=== PATIENT | male | born 1950 | race Caucasian/White ===

== ENCOUNTER → 2016-11-19 | Outpatient (CLI) | payer BC ==
--- NOTE | 2016-11-19 12:56 | ECHOS ---
DATE OF SERVICE: 11/19/2016 AGE: 66Y SEX: M HT: 73" WT: 214 lbs. Protocol Shaggy: X Others: Stress Echo Stage: 3 Dur. of Exercise: 7:00 *Heart Rate Blood Pressure *Rest: 86 Rest: 122/72 * *Max. Achieved: 156 Maximum BP: 183/63 85% PMHR: 133 100% PMHR: 156 *METS: 8.3 INDICATIONS: Chest pain. MEDICATIONS: Advair, Zyrtec. Mr. Ott is a 66-year-old gentleman being evaluated for symptoms of chest pain and shortness of breath. Baseline EKG showed sinus rhythm with normal KS and QRS duration. Patient walked on the Shaggy protocol for 7 minutes, achieving a maximum heart rate of 156 with a blood pressure of 183/63. EKGs taken during and after exercise did not reveal any significant changes from the baseline. ECHO DATA: Baseline echo images are suboptimal. The echo study was performed with contrast. Baseline echo images showed normal wall motion and thickening with borderline LV function. Exercise echo images showed augmentation of the wall motion and thickening in all the segments. FINAL IMPRESSION: 1. Negative stress test. 2. Baseline echo shows borderline normal left ventricular function. 3. Normal stress echo.
== END | disposition home or self-care (01) ==
LOC: RADNMMAIN 08:51
PROVIDERS: ATTEND Family Medicine
DX: R07.9 Chest pain, unspecified (principal); R06.02 Shortness of breath
CPT/HCPCS: 93350; 93017; Q9957

== ENCOUNTER 2017-03-04 06:18 | Day surgery (SDC) | payer BC ==
[2017-02-26 09:39] VITALS: BMI 28.2
[~2017-03-04 06:18] MED LIST: DEXAMETHASONE SOD PHOSPHATE 10 MG/ML 1 ML VIAL IV ONE; HEPARIN SODIUM,PORCINE 5,000 UNIT/ML 1 ML VIAL SQ ONE; LIDOCAINE 1% 20 ML VIAL (10MG/ML) FOR IV START INTRADERMA PRN; ONDANSETRON 4 MG/2 ML VIAL IVP ONE; SCOPOLAMINE 1.5MG/72HR PATCH TRANSDERM ONE; ceFAZolin 2 GM in SODIUM CHLORIDE 0.9% 100 ML IVPB ONE
[2017-03-04] MEDS: LACTATED RINGERS 1,000 ML IV SCH ×2 (07:01→07:12)
--- NOTE | 2017-03-04 07:44 | P.GSHP ---
History of Present Illness H&P Date: 03/04/17 Chief Complaint: Left inguinal hernia This is a 66-year-old male referred from Dr. Luther. He presents today for laparoscopic robotic-assisted repair of left inguinal hernia. Past Medical History Past Medical History: Asthma, Musculoskeletal Disorder Additional Past Medical History / Comment(s): RUPTURED DISC, inguinal hernia History of Any Multi-Drug Resistant Organisms: None Reported Past Surgical History: Back Surgery Additional Past Surgical History / Comment(s): COLONOSCOPY,back surgery 05/30/14 Past Anesthesia/Blood Transfusion Reactions: No Reported Reaction Additional Past Anesthesia/Blood Transfusion Reaction / Comment(s): NEVER HAS HAD GENERAL ANESTHESIA Smoking Status: Never smoker - Past Family History Mother Family Medical History: Cancer Brother(s) Family Medical History: CVA/TIA Medications and Allergies Home Medications Medication Instructions Recorded Confirmed Type Cetirizine HCl/Pseudoephedrine 1 each PO DAILY 05/27/14 03/04/17 History [Zyrtec-D Tablet] Fluticasone/Salmeterol [Advair 1 puff INHALATION QAM 05/27/14 03/04/17 History 100-50 Diskus] Allergies Allergy/AdvReac Type Severity Reaction Status Date / Time No Known Allergies Allergy Verified 03/04/17 06:44 Surgical - Exam Vital Signs Temp Pulse Resp BP Pulse Ox 98.1 F 85 16 148/96 96 03/04/17 06:50 03/04/17 06:50 03/04/17 06:50 03/04/17 06:50 03/04/17 06:50 - General well developed, no distress - Eyes PERRL - ENT normal pinna - Neck no masses - Respiratory normal expansion - Cardiovascular Rhythm: regular - Abdomen Abdomen: soft, non tender Hernia: inguinal (Left) Assessment and Plan Plan: Left inguinal hernia. We'll perform laparoscopic robotic-assisted repair.
[2017-03-04] MEDS ORDERED: MIDAZOLAM 2 MG/2 ML VIAL ONE (07:47)
[2017-03-04] MEDS ORDERED: PROPOFOL 10 MG/ML 20 ML VIAL IV ONE (07:47)
[2017-03-04] MEDS ORDERED: GLYCOPYRROLATE 0.2 MG/ML 2 ML VIAL ONE (07:47)
[2017-03-04] MEDS ORDERED: KETOROLAC 30 MG/ML 1 ML VIAL ONE (07:47)
[2017-03-04] MEDS ORDERED: SUCCINYLCHOLINE CHLORIDE 100 MG/5 ML SYR IV ONE (07:47)
[2017-03-04] MEDS ORDERED: fentaNYL (PF) 50 MCG/ML 2 ML AMP ONE (07:47)
[2017-03-04] MEDS ORDERED: NEOSTIGMINE 1 MG/ML 10 ML VIAL ONE (07:47)
[2017-03-04] MEDS ORDERED: ROCURONIUM BROMIDE 10 MG/ML 10 ML VIAL IV ONE (07:47)
[2017-03-04] MEDS ORDERED: LIDOCAINE 1% INJ 10MG/ML (20 ML MDV) ONE (07:47)
[2017-03-04] MEDS ORDERED: LIDOCAINE 2%-EPI 1:100,000 20 ML VIAL SQ ONE (08:18)
[2017-03-04] MEDS ORDERED: BUPIVACAINE (PF) 0.25% 30 ML VIAL SQ ONE (08:19)
--- NOTE | 2017-03-04 08:50 | P.OP ---
Date of Procedure: 03/04/17 Preoperative Diagnosis: Left Inguinal hernia Postoperative Diagnosis: Left inguinal hernia Procedure(s) Performed: Laparoscopic robotic-assisted repair of left inguinal hernia Implants: Anesthesia: ISAA Surgeon: Darvin Soria Estimated Blood Loss (ml): 5 Pathology: none sent Condition: stable Disposition: PACU Indications for Procedure: Operative Findings: Description of Procedure: The patient's placed on the operating table in the supine position. The patient received general anesthesia. The patient's abdomen was prepped and draped in usual sterile fashion. The skin was anesthetized 1% local Xylocaine at the incision sites. Using an 11 blade a skin incision was made at the umbilicus. The fascia was grasped with a Jhonny and then the peritoneal cavity was entered with the Veress needle. Position of the Veress needle was confirmed with a positive drop test. After adequate insufflation a 5 mm trocar was placed into the peritoneal cavity. The Laparoscope was placed the peritoneal cavity. And a robotic 8 mm trocar was placed in the right lateral position and then another 8 mm robotic trochars placed in the left lateral position. The original 5 mm trocar was exchanged for a 12 mm trocar. The patient was placed in reverse Trendelenburg and then the patient was docked to the robot. Next the peritoneum over top of the hernia was incised and then using blunt and sharp dissection and electrocautery the hernia sac was dissected free from the floor of the inguinal canal. The hernia sac was completely reduced into the peritoneal cavity. And then using the Pro invasive cardiovascular technologist mesh the hernia was repaired. The peritoneum was then sutured with 20V lock suture. The patient was then undocked the robot. The needle was withdrawn from the peritoneal cavity. The umbilical trocar site was closed with 0 Ethibond suture. The skin was closed interrupted 3-0 Monocryl suture. Dermabond dressing was applied. Patient was sent to recovery in stable condition.
[2017-03-04 09:15] VITALS: TEMP 98.2
[2017-03-04] MEDS: HYDROmorphone 1 MG/ML 1 ML SYRINGE IVP PRN ×2 (09:19→09:34)
[2017-03-04 09:56] VITALS: RESP 16
[2017-03-04 11:04] VITALS: BP 147/85; PULSE 72
[2017-03-04] MEDS ORDERED: HYDROcodone/APAP 7.5-325MG 1 EACH TAB PO ONE (11:15)
== END 2017-03-04 12:06 | disposition home or self-care (01) ==
LOC: OR 06:18
PROVIDERS: ATTEND Surgery
DX: K40.90 Unilateral inguinal hernia, without obstruction or gangrene, not specified as recurrent (principal); J45.909 Unspecified asthma, uncomplicated; Z79.51 Long term (current) use of inhaled steroids; Z79.899 Other long term (current) drug therapy
CPT/HCPCS: 49650; C1781; J2250; J1644; J1100; J2710; J0690; J2405; J2001; J3010; J1885; J1170; J0330; J2704

== ENCOUNTER 2019-02-25 06:34 | Day surgery (SDC) | payer BC, OTHER ==
[2019-02-24 08:49] VITALS: BMI 28.3
[~2019-02-25 06:34] MED LIST changes: -DEXAMETHASONE SOD PHOSPHATE 10 MG/ML 1 ML VIAL IV ONE; -HEPARIN SODIUM,PORCINE 5,000 UNIT/ML 1 ML VIAL SQ ONE; +LACTATED RINGERS 1,000 ML IV SCH; -LIDOCAINE 1% 20 ML VIAL (10MG/ML) FOR IV START INTRADERMA PRN; -ONDANSETRON 4 MG/2 ML VIAL IVP ONE; -SCOPOLAMINE 1.5MG/72HR PATCH TRANSDERM ONE; -ceFAZolin 2 GM in SODIUM CHLORIDE 0.9% 100 ML IVPB ONE
[2019-02-25] MEDS ORDERED: LACTATED RINGERS 1,000 ML IV ONE (07:14)
[2019-02-25 07:18] VITALS: TEMP 98.6
[2019-02-25] MEDS ORDERED: PROPOFOL 10 MG/ML 20 ML VIAL IV ONE (07:43)
[2019-02-25] MEDS ORDERED: LIDOCAINE 1% INJ 10MG/ML (20 ML MDV) ONE (07:43)
--- NOTE | 2019-02-25 08:11 | P.PCN ---
Date of Procedure: 02/25/19 Description of Procedure: BRIEF HISTORY: Patient is a 68-year-old pleasant male scheduled for an elective colonoscopy as a part of screening for malignant neoplasm of the colon. Patient denies any change in bowel habits, blood per rectum or abdominal pain. Last colonoscopy was approximately 10 years ago and normal. No family history of colon cancer reported. PROCEDURE PERFORMED: Colonoscopy. PREOPERATIVE DIAGNOSIS: Screening for malignant neoplasm of the colon, last colonoscopy 10 years ago. ESTIMATED BLOOD LOSS: Minimal. IV sedation per Anesthesia. PROCEDURE: After informed consent was obtained, the patient, was brought into the endoscopy unit. IV sedation was administered by Anesthesia under continuous monitoring. Digital rectal examination was normal. Initially the Olympus CF-190 flexible video colonoscope was then inserted in the rectum, gradually advanced into the c ecum without any difficulty. Careful examination was performed as the scope was gradually being withdrawn. Ileocecal valve and the appendiceal orifice were visualized and appeared normal. Prep was excellent. Mucosa of the cecum, ascending colon, transverse colon, descending colon, sigmoid colon, and rectum appeared normal. Mild scattered smallmouth diverticula in the sigmoid were noted. Mild internal hemorrhoids. Retroflexion was performed in the rectum and no lesions were seen. The patient tolerated the procedure well. IMPRESSION: Normal-appearing colon from rectum to cecum. Mild sigmoid diverticulosis. Internal hemorrhoids. RECOMMENDATIONS: Findings of this examination were discussed with the patient and his . Okay to resume high-fiber diet. Repeat colonoscopy in 10 years or sooner if signs or symptoms which warrant further evaluation develop.
[2019-02-25 08:16] VITALS: RESP 16
[2019-02-25 08:31] VITALS: BP 124/74; PULSE 66
== END 2019-02-25 09:10 | disposition home or self-care (01) ==
LOC: ORWHC2ENDO 06:34
PROVIDERS: ATTEND Internal Medicine
DX: Z12.11 Encounter for screening for malignant neoplasm of colon (principal); K57.30 Diverticulosis of large intestine without perforation or abscess without bleeding; K64.8 Other hemorrhoids; J45.909 Unspecified asthma, uncomplicated; Z79.899 Other long term (current) drug therapy
CPT/HCPCS: G0121; J2001; J2704

== ENCOUNTER → 2019-03-30 | Outpatient (CLI) | payer BC ==
--- NOTE | 2019-03-30 21:35 | CONS ---
CONSULTATION REASON FOR CONSULTATION: Consultation note for sleep apnea. HISTORY OF PRESENT ILLNESS: 68-year-old male patient, works at [employer] who is about to retire within the next few months. The patient has been noted to snore and quit breathing at night and he has been told that by his who is quite worried about his condition. For that reason, the patient was referred to me. He is feeling fatigued and tired. He reports that his sleep is fragmented. He goes to bed between 9-930 p.m. and he has to get up and around 3:10 am in the morning to go to work. He has to wake up with an alarm. He feels non refreshed. His [place] score is currently at 17. He is able to function well at work. He does not fall asleep while driving. It does not fall asleep while working. However he feels very much sleepy after getting back home. On weekends, he sleeps longer and he may get up sometimes at 8 o'clock in the morning. As mentioned, he snores. No grinding of the teeth. No restlessness in lower extremities. No anxiety. No panic attacks. No palpitation. No heartburn. No chest pain. No claustrophobia. No depression. He has asthma which is well controlled with Advair. He has a history of nasal septal deviation. He has problems breathing through his left nostril and for that reason, he has been a mouth breather especially at nighttime. He wakes up with a dry mouth. PAST MEDICAL HISTORY: Asthma and nasal septal deviation. PAST SURGICAL HISTORY: Includes back surgery and hernia. DRUG ALLERGIES: Not known. ALLERGIES: THE PATIENT IS ALLERGIC TO DUST AND GRASS AND POLLEN AND MOLDS. SOCIAL HISTORY: The patient is a social alcohol drinker. No history of smoking. No history of IV drugs. FAMILY HISTORY: Mother had ovarian cancer. Father had COPD. REVIEW OF SYSTEMS: Fourteen-point review of system was done. Positive findings are mentioned in history of present illness. PHYSICAL EXAMINATION: BP is 134/84, pulse 78, respirations 16, temperature 98.2. Saturation 96% on room air. Height is 6 feet 0 inches, weight is 216 and neck size 17 inches. General appearance: Calm, comfortable in no acute distress. HEAD is atraumatic, normocephalic. NECK: Supple. There is no JVD. No goiter or neck masses. Mallampati class III. LUNGS: Clear to auscultation. HEART: Sounds regular rate and rhythm. Normal S1, S2. No S3. No murmurs. ABDOMEN: Soft, nontender. No organomegaly. EXTREMITIES: No edema. No cyanosis or clubbing. Neurologically, the patient is alert and oriented x3. No focal neurological deficits. PSYCH is negative for anxiety or depression. IMPRESSION: 1. Hypersomnia with an [place] score of 17, high likelihood for obstructive sleep apnea especially with his snoring and witnessed apneas. 2. Chronic fatigue and sleepiness under investigation. 3. Bronchial asthma currently inactive and stable. 4. 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 PLAN: Home sleep study looking for any significant sleep breathing disorder and further recommendations are to follow accordingly. MMODL / IJN: [id number] /
== END | disposition home or self-care (01) ==
LOC: SLEEP 14:46
PROVIDERS: ATTEND Internal Medicine Critical Care Medicine
DX: G47.10 Hypersomnia, unspecified (principal); J45.909 Unspecified asthma, uncomplicated; J34.2 Deviated nasal septum; R53.83 Other fatigue
CPT/HCPCS: 99211

== ENCOUNTER → 2022-04-17 | Outpatient (CLI) | payer MEDICARE ==
--- NOTE | 2022-04-17 11:24 | P.PN ---
Subjective DATE: 04/17/2022 FOLLOW UP VISIT. Patient with obstructive sleep apnea hypopnea syndrome return to sleep center for follow-up visit. Recently patient had sleep study which documented obstructive sleep apnea hypopnea syndrome. Patient was initiated on PAP therapy and today is first visit after treatment was started. Patient was able to use PAP equipment every night for the whole night and he feels much better with the CPAP than before. Previously patient had 34 episodes of nocturia, now it's possibly only one time. The patient does not have significant problems with the mask, PAP pressure and humidification. [place] sleepiness scale is 3. I checked information from PAP unit. PAP unit pressure 9-14, average 10.9 cm H2O. Usage is 90% for more then 4 hours, average 7.5 hours per night. Leak is 80.9 l/m, which is in acceptable range. Apnea Hypopnea Index is 19.7, included 0.4 obstructive, 1.0 centrals, and 15.9 unknown. MEDICATIONS:1. Ecotrin 2. Fluticasone 3. Salmeterol 4. Cetirizine During physical exam: GENERAL: A pleasant patient without any distress. VITAL SIGNS: BP 137/87, HR 68, RR 16, weight 224.0, temperature 97, oxygen saturation at room air 97%. HEENT: PERRLA, EOMI.low position of soft palate . NECK: Supple. No JVD. LUNGS: Clear to percussion and to auscultation. Good air exchange. No wheezing or rhonchi. HEART: S1, S2 regular. ABDOMEN: Soft and nontender.[] EXTREMITIES: No clubbing or cyanosis. MISSILE FACILITIES REPAIRER: Awake, alert, and oriented x3. No focal deficit. Impressions: 1. Obstructive sleep apnea-hypopnea syndrome. Patient demonstrated great compliance with treatment, benefiting from treatment. Significant leak from the mask. Apnea-hypopnea index improved decreased from 63.4 down to 19.7, but still above normal range. 2. Asthma. 3. History of headaches. 4. History of back problems status post back surgery. 5. Status post hernia repair. 6. Restriction of nasal breathing. Patient is using full face mask. Some irritation on the bridge of the nose.. Plan: 1. Continue using PAP equipment every night for the whole night. I change range of the pressure to 9-16 cm of water. 2. To change air filter at least 1-2 times per month. 3. PAP unit should stay lower then position of the head. 4. Advised patient to remove all remaining water from humidifier canister daily and make it dry after each usage. Refill canister with fresh distilled water before each usage. 5. Sleep hygiene with regular time in bed for at least 8 hours. 6. Precautions related to driving. No driving if feel any sleepiness. 7. I will maintain prescription for PAP supplies including mask, tube, filters. Prescription for different full face mask, which will be dreamwhere, which goes below nose. 8. Follow up visit in 4 months or earlier if patient has any problems. 9. Watching weight. Thank you very much for allowing me to participate in the management of your patient. Piotr Monroy MD, PhD, FAASM. Diplomat of [place] [employer] Sleep Medicine, Sleep Medicine Board by [place] [employer] Filament Coil Winder of [facility] [place]
== END ==
LOC: SLEEP 10:17
PROVIDERS: ATTEND Internal Medicine
DX: G47.33 Obstructive sleep apnea (adult) (pediatric) (principal); J45.909 Unspecified asthma, uncomplicated; Z99.89 Dependence on other enabling machines and devices; Z86.69 Personal history of other diseases of the nervous system and sense organs; Z98.890 Other specified postprocedural states
CPT/HCPCS: 99212

== ENCOUNTER → 2023-03-13 | Outpatient (CLI) | payer MEDICARE ==
--- NOTE | 2023-03-13 12:11 | P.PN ---
Subjective DATE: 03/13/2023 FOLLOW UP VISIT. Patient with obstructive sleep apnea hypopnea syndrome return to sleep center for follow-up visit. Information from previous visit have been reviewed. Patient is using PAP equipment every night for the whole night, getting PAP supplies in time. Patient feels discomfort related to pressure in his unit on wake up in the middle of the night. [place] sleepiness scale is borderline 10. I checked information from PAP unit. PAP unit pressure 9-18, average 17.4 cm H2O. Usage is 77% and 73 % for more then 4 hours, average 6.75 hours per night. Leak is 22.3 l/m, which is in acceptable range. Apnea Hypopnea Index is increased to 15.3 and that includes 2.4 central of, 6.8 obstructive, 1.8 unknown and 1.6 RERA index. Ramp at 10 minutes. MEDICATIONS:1. Fluticasone 2. Zyrtec 3. Ecotrin During physical exam: GENERAL: A pleasant patient without any distress. VITAL SIGNS: BP 149/92, HR 73, RR 12 , weight 219.0, temperature 97.4, oxygen saturation at room air 95 % . HEENT: PERRLA, EOMI.low position of soft palate. NECK: Supple. No JVD. LUNGS: Clear to percussion and to auscultation. Good air exchange. No wheezing or rhonchi. HEART: S1, S2 regular. ABDOMEN: Soft and nontender.[] EXTREMITIES: No clubbing or cyanosis. DIGITAL MARKETING EXECUTIVE: Awake, alert, and oriented x3. No focal deficit. Impressions: 1. Obstructive sleep apnea-hypopnea syndrome. Patient demonstrated good compliance with treatment, but has problems related to the pressure. 2. Asthma. 3. History of back problems, status post back surgery. 4. Restriction of nasal breathing, patient has to use fullface mask. 5. ALLERGY. 6. Status post hernia repair. I decreased range of the pressure in CPAP unit to the level 9-15 cm of water. Ramp was switched to automatic regimen. Plan: 1. Continue using PAP equipment every night for the whole night. 2. To change air filter at least 1-2 times per month. 3. PAP unit should stay lower then position of the head. 4. Advised patient to remove all remaining water from humidifier canister daily and make it dry after each usage. Refill canister with fresh distilled water before each usage. 5. Sleep hygiene with regular time in bed for at least 8 hours. 6. Precautions related to driving. No driving if feel any sleepiness. 7. I will maintain prescription for PAP supplies including mask, tube, filters. 8. Follow up visit in 2 months or earlier if patient has any problems. 9. Watching weight. Thank you very much for allowing me to participate in the management of your patient. Piotr Monroy MD, PhD, FAASM. Diplomat of [place] [employer] Sleep Medicine, Sleep Medicine Board by [place] [employer] Medicine Curbing Stonecutter of [facility] [place]
== END ==
LOC: 3 N SLEEP 11:06
PROVIDERS: ATTEND Internal Medicine
DX: G47.33 Obstructive sleep apnea (adult) (pediatric) (principal); J45.909 Unspecified asthma, uncomplicated; Z98.890 Other specified postprocedural states; Z99.89 Dependence on other enabling machines and devices; Z79.51 Long term (current) use of inhaled steroids
CPT/HCPCS: 99212

== ENCOUNTER → 2023-08-06 | Outpatient (CLI) | payer MEDICARE ==
--- NOTE | 2023-08-06 12:08 | P.PN ---
Subjective DATE: 08/06/2023 FOLLOW UP VISIT. Patient with obstructive sleep apnea hypopnea syndrome return to sleep center for follow-up visit. Information from previous visit have been reviewed. Patient is using PAP equipment every night for the whole night, getting PAP supplies in time. Patient still has some leak from the mask. He feels that he wakes up in the middle of the night because pressure is too high for him. [place] sleepiness scale is increased to 12. I checked information from PAP unit. PAP unit pressure 9-15, average 14.7 cm H2O. Usage is 87% and 70 % for more then 4 hours, average 6 hours per night. Leak is significantly increased to 39.9 l/m. Apnea Hypopnea Index is significantly increased to 25.6, which include 11.5 obstructive events, 1.2 central events and 10.8 unknown events, which is normal. MEDICATIONS:1. Fluticasone 2. Zyrtec 3. Ecotrin During physical exam: GENERAL: A pleasant patient without any distress. VITAL SIGNS: BP 149/87, HR 77, RR 16, weight 225.0, temperature 97.9, oxygen saturation at room air 96 % . HEENT: PERRLA, EOMI.low position of soft palate, Mallapati 3 . NECK: Supple. No JVD. LUNGS: Clear to percussion and to auscultation. Good air exchange. No wheezing or rhonchi. HEART: S1, S2 regular. ABDOMEN: Soft and nontender.[] EXTREMITIES: No clubbing or cyanosis. MOTOR GRADER OPERATOR: Awake, alert, and oriented x3. No focal deficit. I reviewed results of previous sleep studies. Home sleep apnea test on 12/11/2021 showed apnea-hypopnea index 63.4 with 121 mixed apneas, 79 central apneas, 223 obstructive apneas. During previous titration with CPAP respiration was normalized to the pressure 11, apnea-hypopnea index came down to 1.4. Impressions: 1. 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 Patient demonstrated great compliance with treatment, benefiting from treatment, but apnea-hypopnea index significantly increased to 25.6.. 2. Asthma. 3. History of back problems, status post back surgery. 4. Restriction of nasal breathing, patient has to use full face mask. 5. ALLERGY. 6. Status post hernia repair. I changed parameters of CPAP unit to constant pressure 11 cm of water. Plan: 1. Continue using PAP equipment every night for the whole night. 2. To change air filter at least 1-2 times per month. 3. PAP unit should stay lower then position of the head. 4. Advised patient to remove all remaining water from humidifier canister daily and make it dry after each usage. Refill canister with fresh distilled water before each usage. 5. Sleep hygiene with regular time in bed for at least 8 hours. 6. Precautions related to driving. No driving if feel any sleepiness. 7. I will maintain prescription for PAP supplies including mask, tube, filters. 8. Follow up visit in 1 months or earlier if patient has any problems. 9. Watching weight. Thank you very much for allowing me to participate in the management of your patient. Piotr Monroy MD, PhD, FAASM. Diplomat of [place] Board of Sleep Medicine, Sleep Medicine Board by [place] Board of Internal Medicine Bundle Helper [facility] [place]
== END ==
LOC: 3 N SLEEP 10:23
PROVIDERS: ATTEND Internal Medicine
DX: G47.33 Obstructive sleep apnea (adult) (pediatric) (principal); J45.909 Unspecified asthma, uncomplicated; Z98.890 Other specified postprocedural states; Z99.89 Dependence on other enabling machines and devices; Z91.09 Other allergy status, other than to drugs and biological substances
CPT/HCPCS: 99212

== ENCOUNTER → 2023-09-04 | Outpatient (CLI) | payer MEDICARE ==
--- NOTE | 2023-09-04 11:36 | P.PN ---
Subjective DATE: 07/04/2024 FOLLOW UP VISIT. Patient with obstructive sleep apnea hypopnea syndrome return to sleep center for follow-up visit. Information from previous visit have been reviewed. During previous visit apnea-hypopnea index was significantly increased to 25.6 and I changed parameters over the machine AutoPap to CPAP 11 cm of water. Patient is using PAP equipment every night for the whole night, getting PAP supplies in time. Patient continued to have awakenings from sleep well using CPAP equipment. [place] sleepiness scale is increased to 16. I checked information from PAP unit. PAP unit pressure 11 cm H2O. Usage is 83% and 79 % for more then 4 hours, average 5.75 hours per night. Leak is borderline 24.9 l/m, which is better than during previous visit when it was 39.9.. Apnea Hypopnea Index is high 31.4. MEDICATIONS:1. Fluticasone 2. Zyrtec 3. Ecotrin During physical exam: GENERAL: A pleasant patient without any distress. VITAL SIGNS: BP 123/76, HR 76, RR 16, weight 222, temperature 97.7, oxygen saturation at room air 95 % . HEENT: PERRLA, EOMI.low position of soft palate, Mallapati 3 . NECK: Supple. No JVD. LUNGS: Clear to percussion and to auscultation. Good air exchange. No wheezing or rhonchi. HEART: S1, S2 regular. ABDOMEN: Soft and nontender.[] EXTREMITIES: No clubbing or cyanosis. CROP GRAIN OR LIVESTOCK FARMER: Awake, alert, and oriented x3. No focal deficit. Impressions: 1. Obstructive sleep apnea-hypopnea syndrome severe, regional apnea-hypopnea index during polysomnogram 63.4.. Patient demonstrated good compliance with treatment. Patient continued to have severe abnormalities of respiration during sleep. I changed parameters of CPAP unit to AutoPap in the range of the pressure 9-18 cm of water. 2. ALLERGY. 3. Asthma. 4. History of back problems, status post back surgery. 5. Restriction of nasal breathing, patient has to use full face mask. 6. Status post hernia repair. Plan: 1. Continue using PAP equipment every night for the whole night. 2. To change air filter at least 1-2 times per month. 3. PAP unit should stay lower then position of the head. 4. Advised patient to remove all remaining water from humidifier canister daily and make it dry after each usage. Refill canister with fresh distilled water before each usage. 5. Sleep hygiene with regular time in bed for at least 8 hours. 6. Precautions related to driving. No driving if feel any sleepiness. 7. I will maintain prescription for PAP supplies including mask, tube, filters. 8. Follow up visit in 1 months or earlier if patient has any problems. 9. Watching weight. Thank you very much for allowing me to participate in the management of your patient. Piotr Monroy MD, PhD, FAASM. Diplomat of [place] Board of Sleep Medicine, Sleep Medicine Board by [place] [employer] Medicine Compliance Lead of [facility] [place]
== END ==
LOC: 3 N SLEEP 10:41
PROVIDERS: ATTEND Internal Medicine
DX: G47.33 Obstructive sleep apnea (adult) (pediatric) (principal); J45.909 Unspecified asthma, uncomplicated; T78.40XA Allergy, unspecified, initial encounter; Z98.890 Other specified postprocedural states; Z99.89 Dependence on other enabling machines and devices; Z87.39 Personal history of other diseases of the musculoskeletal system and connective tissue; Z79.51 Long term (current) use of inhaled steroids
CPT/HCPCS: 99212

== ENCOUNTER → 2023-10-02 | Outpatient (CLI) | payer MEDICARE ==
[2023-10-02 13:38] VITALS: BP 118/74; PULSE 82; RESP 16; TEMP 97.9
--- NOTE | 2023-10-02 14:47 | P.PN ---
Subjective DATE: 10/02/2023 FOLLOW UP VISIT. Patient with obstructive sleep apnea hypopnea syndrome return to sleep center for follow-up visit. Information from previous visit have been reviewed. Patient continued to have some problems with mask, sometimes has significant leak. Presently he has full facemask which goes under the nose and is better than previous mask, but again he has problems. [place] sleepiness scale is significantly increased to 21. I checked information from PAP unit. PAP unit pressure 9-18 average 17.5 cm H2O. Usage is 77% for more then 4 hours, average 5.5 hours per night. Leak is significantly increased to 38.4 l/m. Apnea Hypopnea Index is significantly increased to 27.1. MEDICATIONS:1. Fluticasone 2. Zyrtec 3. Ecotrin During physical exam: GENERAL: A pleasant patient without any distress. VITAL SIGNS: Please see below, BMI 29.2. HEENT: PERRLA, EOMI.low position of soft palate, Mallapati 3 . NECK: Supple. No JVD. LUNGS: Clear to percussion and to auscultation. Good air exchange. No wheezing or rhonchi. HEART: S1, S2 regular. ABDOMEN: Soft and nontender.[] EXTREMITIES: No clubbing or cyanosis. CAMPAIGN CONSULTANT: Awake, alert, and oriented x3. No focal deficit. Impressions: 1. Obstructive sleep apnea-hypopnea syndrome. Patient demonstrated borderline great compliance with treatment. Patient continued to have problems with the CPAP related to mask fitting. Significant leak is present and apnea-hypopnea index significantly increased. 2. Asthma. 3. Allergy. 4. History of back problems. 5. Restriction of nasal breathing. 6. Status post hernia repair. I increased pressure in CPAP unit to the range 9 to 20 cm of water. Plan: 1. Continue using PAP equipment every night for the whole night. We gave patient AirFit F40 fullface mask. Prescription with the goal to get for patient full facemask which has nasal pillows. 2. To change air filter at least 1-2 times per month. 3. PAP unit should stay lower then position of the head. 4. Advised patient to remove all remaining water from humidifier canister daily and make it dry after each usage. Refill canister with fresh distilled water before each usage. 5. Sleep hygiene with regular time in bed for at least 8 hours. 6. Precautions related to driving. No driving if feel any sleepiness. 7. I will maintain prescription for PAP supplies including mask, tube, filters. 8. Follow up visit in 2 months or earlier if patient has any problems. 9. Watching weight. Thank you very much for allowing me to participate in the management of your patient. Piotr Monroy MD, PhD, FAASM. Diplomat of [place] [employer], Sleep Medicine Board by [place] [employer] Private Investigator Surveillance of [facility] [place] Objective - Vital Signs Vital signs: Vital Signs Temp 97.9 F 10/02/23 13:34 Pulse 82 10/02/23 13:34 Resp 16 10/02/23 13:34 BP 118/74 10/02/23 13:34 Pulse Ox 96 10/02/23 13:34 FiO2 Intake & Output 10/01/23 10/02/23 10/02/23 18:59 06:59 18:59 Weight 99.337 kg
== END ==
LOC: 3 N SLEEP 13:12
PROVIDERS: ATTEND Internal Medicine
DX: G47.33 Obstructive sleep apnea (adult) (pediatric) (principal); J45.909 Unspecified asthma, uncomplicated; T78.40XA Allergy, unspecified, initial encounter; Z87.39 Personal history of other diseases of the musculoskeletal system and connective tissue; Z98.890 Other specified postprocedural states; Z99.89 Dependence on other enabling machines and devices; Z79.51 Long term (current) use of inhaled steroids
CPT/HCPCS: 99212

== ENCOUNTER → 2023-10-09 | Outpatient (CLI) | payer MEDICARE ==
[2023-10-09 12:50] LABS: African American GFR (CKD) >90 (>60 ml/min/1.73 sqM); Blood Urea Nitrogen 17 mg/dL (9-20); Non-African American GFR(CKD) 89 (>60 ml/min/1.73 sqM)
--- NOTE | 2023-10-09 14:33 | CT ---
EXAMINATION TYPE: CT pelvis w con DATE OF EXAM: 10/09/2023 COMPARISON: None INDICATION: INGUINAL HERNIA DLP: 975.2 mGycm, Automated exposure control for dose reduction was used. CONTRAST: 100 ml mL of Isovue 300. Study performed with Oral Contrast TECHNIQUE: Axial images were obtained from above the iliac crests to the pubic rami in the axial plan e at 5 mm thick sections. Reconstructed images are reviewed on the computer in the coronal plane. FINDINGS: Limited CT sections were obtained through the lower abdomen. Peripelvic cysts appear to be at the inf erior pole left kidney. Loops of bowel with oral contrast are normal. CT PELVIS: Loops of bowel within the lower abdomen and pelvis are normal. There are loops of bowel which are incompletely distended or lack oral contrast limiting their evaluation. Appendix: Normal as visualized. Urinary bladder: Normal. Genitourinary structures: Prostate is somewhat prominent Osseous structures: No suspicious lytic or sclerotic lesions. IMPRESSION: 1. No suspicious changes to suggest inguinal hernia.
== END | disposition home or self-care (01) ==
LOC: RADCTMAIN 11:51
PROVIDERS: ATTEND Surgery
DX: K40.90 Unilateral inguinal hernia, without obstruction or gangrene, not specified as recurrent (principal)
CPT/HCPCS: 82565; 84520; 72193; 36415; Q9967

== ENCOUNTER → 2024-03-03 | Outpatient (CLI) | payer MEDICARE ==
[2024-03-03 14:31] VITALS: BP 122/78; PULSE 74; RESP 16; TEMP 97.8
--- NOTE | 2024-03-03 15:41 | P.PROGSL ---
Subjective DATE: 03/03/2024 FOLLOW UP VISIT. Patient with obstructive sleep apnea hypopnea syndrome return to sleep center for follow-up visit. Information from previous visit have been reviewed. Patient is using PAP equipment every night for the whole night, getting PAP supplies in time. The patient does not have significant problems with the mask, PAP unit and humidification. [place] sleepiness scale is increased to 12. I checked information from PAP unit. PAP unit pressure 9-20, average 15.8 cm H2O. Usage is 90% for more then 4 hours, average 6 hours per night. Leak is increased to 37.4 l/m, which is in acceptable range. Apnea Hypopnea Index is increased to 11.1, which showed significant improvements comparing with apnea hypopnea index during previous visit, when it was 27.1. MEDICATIONS have been reviewed, please see below. During physical exam: GENERAL: A pleasant patient without any distress. VITAL SIGNS: Please see below, weight is 216 lbs. HEENT: PERRLA, EOMI.low position of soft palate, Mallapati 3. NECK: Supple. No JVD. LUNGS: Clear to percussion and to auscultation. Good air exchange. No wheezing or rhonchi. HEART: S1, S2 regular. ABDOMEN: Soft and nontender.[] EXTREMITIES: No clubbing or cyanosis. LEAD MEDICAL TECHNOLOGIST: Awake, alert, and oriented x3. No focal deficit. Impressions: 1. Obstructive sleep apnea-hypopnea syndrome. Patient demonstrated great compliance with treatment, benefiting from treatment. Apnea-hypopnea index improved, but still above perfect range and include 3.2 central events per hour 2. I reviewed results of home sleep apnea test 2 years ago, it was documented 223 obstructive apneas, 79 central apneas and 129 mixed apneas and 76 hypopneas, significant amount of central events documented. 3. Asthma. 4. Allergy. 5. History of back problems. 6. Restriction of nasal breathing. 7. Status post hernia repair. Plan: 1. Continue using PAP equipment every night for the whole night. We gave patient mask with correct size of headgear with the goal to prevent a leak from the mask. 2. Sleep hygiene with regular time in bed for at least 7.5-8 hours 3. PAP unit should stay lower then position of the head. 4. Advised patient to remove all remaining water from humidifier canister daily and make it dry after each usage. Refill canister with fresh distilled water before each usage. 5. Watching weight. 6. Precautions related to driving. No driving if feel any sleepiness. 7. I will maintain prescription for PAP supplies including mask, tube, filters. 8. Follow up visit in 3 months or earlier if patient has any problems. Thank you very much for allowing me to participate in the management of your patient. Piotr Monroy MD, PhD, FAASM. Diplomat of [place] [employer], Sleep Medicine Board by [place] [employer] Hoop Driving Machine Operator of [facility] [place] Objective - Vital Signs Vital Signs: Vital Signs Temp 97.8 F 03/03/24 14:29 Pulse 74 03/03/24 14:29 Resp 16 03/03/24 14:29 BP 122/78 03/03/24 14:29 Pulse Ox 97 03/03/24 14:29 FiO2 Intake & Output 03/02/24 03/03/24 03/03/24 18:59 06:59 18:59 Weight 97.976 kg Home Medications: Home Medications Medication Instructions Recorded Confirmed Type Cetirizine HCl [Zyrtec] 10 mg PO DAILY 02/24/19 03/03/24 History Fluticasone Propion/Salmeterol 1 inhalation PO DAILY 02/24/19 03/03/24 History [Kristiela 100-50 Inhub]
== END ==
LOC: 3 N SLEEP 14:17
PROVIDERS: ATTEND Internal Medicine
CPT/HCPCS: 99212

== ENCOUNTER → 2024-05-27 | Outpatient (CLI) | payer MEDICARE ==
[2024-05-27 11:18] VITALS: BP 133/82; PULSE 70; RESP 16; TEMP 97.6
--- NOTE | 2024-05-27 12:08 | P.PROGSL ---
Subjective DATE: 05/27/2024 FOLLOW UP VISIT. Patient with obstructive sleep apnea hypopnea syndrome return to sleep center for follow-up visit. Information from previous visit have been reviewed. Patient is using PAP equipment every night for the whole night, getting PAP supplies in time. The patient does not have significant problems with the mask, PAP unit and humidification. [place] sleepiness scale is increased to 15. I checked information from PAP unit. PAP unit pressure 9-20 cm H2O. Usage is 80% for more then 4 hours, average 5.9 hours per night. Leak is 0 l/m during the last night, during the year sometimes increased up to 37 L/min. Apnea Hypopnea Index is 6.2 during last night, which is borderline. MEDICATIONS have been reviewed, please see below. During physical exam: GENERAL: A pleasant patient without any distress. VITAL SIGNS: Please see below, weight is 214 lbs. HEENT: PERRLA, EOMI.low position of soft palate, Mallapati 3. NECK: Supple. No JVD. LUNGS: Clear to percussion and to auscultation. Good air exchange. No wheezing or rhonchi. HEART: S1, S2 regular. ABDOMEN: Soft and nontender.[] EXTREMITIES: No clubbing or cyanosis. MACHINE OPERATOR FARMWORKER: Awake, alert, and oriented x3. No focal deficit. Impressions: 1. Obstructive sleep apnea-hypopnea syndrome in severe range. Patient demonstrated good compliance with treatment, benefiting from treatment. 2. Asthma. 3. Allergy. 4. History of back problems. 5. Status post hernia repair. 6. Restriction of nasal breathing, patient has to use full facemask. Plan: 1. Continue using PAP equipment every night for the whole night. 2. Sleep hygiene with regular time in bed for at least 7.5-8 hours 3. PAP unit should stay lower then position of the head. 4. Advised patient to remove all remaining water from humidifier canister daily and make it dry after each usage. Refill canister with fresh distilled water before each usage. 5. Watching and losing weight. 6. Precautions related to driving. No driving if feel any sleepiness. 7. I will maintain prescription for PAP supplies including mask, tube, filters. 8. Follow up visit in 8 months or earlier if patient has any problems. Thank you very much for allowing me to participate in the management of your patient. Piotr Monroy MD, PhD, FAASM. Diplomat of [place] [employer], Sleep Medicine Board by [employer] [employer] Lifestyle Consultant of [facility] [place] Objective - Vital Signs Vital Signs: Vital Signs Temp 97.6 F 05/27/24 11:18 Pulse 70 05/27/24 11:18 Resp 16 05/27/24 11:18 BP 133/82 05/27/24 11:18 Pulse Ox 97 05/27/24 11:18 FiO2 Intake & Output 05/26/24 05/27/24 05/27/24 18:59 06:59 18:59 Weight 97.069 kg Home Medications: Home Medications Medication Instructions Recorded Confirmed Type Cetirizine HCl [Zyrtec] 10 mg PO DAILY 02/24/19 05/27/24 History Fluticasone Propion/Salmeterol 1 inhalation PO DAILY 02/24/19 05/27/24 History [Wixela 100-50 Inhub]
== END ==
LOC: 3 N SLEEP 10:53
PROVIDERS: ATTEND Internal Medicine
DX: G47.33 Obstructive sleep apnea (adult) (pediatric) (principal); J45.909 Unspecified asthma, uncomplicated; T78.40XA Allergy, unspecified, initial encounter; Z87.39 Personal history of other diseases of the musculoskeletal system and connective tissue; Z98.890 Other specified postprocedural states; Z99.89 Dependence on other enabling machines and devices; Z79.51 Long term (current) use of inhaled steroids
CPT/HCPCS: 99212

== ENCOUNTER → 2024-07-27 | Outpatient (CLI) | payer MEDICARE ==
[2024-07-27 14:39] LABS: African American GFR (CKD) >90 (>60 ml/min/1.73 sqM); Blood Urea Nitrogen 17 mg/dL (9-20); Non-African American GFR(CKD) 87 (>60 ml/min/1.73 sqM)
--- NOTE | 2024-07-27 17:35 | CT ---
EXAMINATION TYPE: CT soft tissue neck w con DATE OF EXAM: 07/27/2024 3:03 PM COMPARISON: None. 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 Reconstructed images in the coronal plane and sagitt al plane are reviewed. Contrast used:100 mL of Isovue 300 with IV Contrast, (none if empty) Oral contrast used: (none if empty) CT DLP: 505 mGycm, Automated exposure control for dose reduction was used. FINDINGS: Limited CT sections are obtained the lung apices. The lung apices appear clear. CT neck: The torus tubarius and fossa of Rosenmuller are normal. Junior Technical Writer spaces are normal. Para nasal sinuses and mastoid air cells are clear. Parotid glands appear normal and symmetrical. Submandibular glands, are normal. Parapharyngeal spac es are normal. No suspicious adenopathy is evident. There is a 0.8 cm hypodensity within the anterior right tonsillar column, series 3 image 33. Correlat e for developing abscess. Close follow-up recommended. The hypopharynx appears within normal limits. Vocal cord level appear symmetrical. Thyroid as visualized is normal. Osseous structures are normal. Epiglottis appears normal. Prevertebral space is normal. IMPRESSION: 1. There is a 0.8 cm hypodensity within the anterior right tonsillar pillar could be developing absce ss. Clinical correlation recommended. Close follow-up is recommended. A Red level critical message alert has been initiated for Mason Rojas MD via the Subtextual Critical Results System on 07/27/2024 5:33 PM. This message alert has been sent to Mason Rojas MD via the preferences provided by the clinician for the receipt of Radiology Critical Findings. Message ID [id number]. [facility], , 07/27/2024 5:33 PM
== END | disposition home or self-care (01) ==
LOC: RADCTMAIN 13:11
PROVIDERS: ATTEND Otolaryngology
DX: D10.4 Benign neoplasm of tonsil (principal)
CPT/HCPCS: 82565; 84520; 70491; 36415; Q9967

== ENCOUNTER → 2024-08-26 | Outpatient (CLI) | payer MEDICARE ==
--- NOTE | 2024-08-28 23:16 | PE ---
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 Images are reviewed on the computer in the coronal, axial, and sagittal planes. Reconstructed rotating images are created on independent workstation an d reviewed on the computer. A non-contrast CT is performed in conjunction with the PET scan. Glucos e level 100 mg/dL CT DLP: 1902.17 mGycm, Automated exposure control for dose reduction was used. COMPARISON: CT 07/27/2024, 10/09/2023, PET/CT None, MRI: None FINDINGS: Mediastinal SUV mean is 2.1. Hepatic parenchyma SUV mean is 2.7. SKULL BASE AND NECK: There is a cavitary thick-walled enhancing lesion within the right palatine tonsillar region. This de monstrates a maximum SUV of 24.1. This abuts the right posterior tongue base and measures grossly 3.6 x 2.1 cm. CHEST, MEDIASTINUM, AND HILAR REGION: No suspicious radiotracer activity. ABDOMEN AND PELVIS: No suspicious radiotracer activity. MUSCULOSKELETAL STRUCTURES: No suspicious radiotracer activity. OTHER CT: Bilateral aphakia. Mild mucosal thickening of the inferior left maxillary sinus. Bilateral carotid bulb calcifications. Subcentimeter hypodense left thyroid lobe nodule. Mild atherosclerotic c alcification of aorta and its branches. Bilateral gynecomastia. Multilevel degenerative disc disease of the spine. IMPRESSION: FDG avid cavitary right palatine tonsil lesion consistent with reported tonsillar cancer. No other monzon spicious radiotracer activity to suggest metastasis. [facility], , 08/28/2024 11:14 PM
== END | disposition home or self-care (01) ==
LOC: RADPETMAIN 06:26
PROVIDERS: ATTEND Otolaryngology
DX: C09.9 Malignant neoplasm of tonsil, unspecified (principal)
CPT/HCPCS: 78815; A9552

== ENCOUNTER 2024-11-23 10:17 | Day surgery (SDC) | payer MEDICARE ==
[2024-11-23] MEDS: IV FLUID CONTINUATION 1,000 ML IV ONE (12:21)
[2024-11-23] MEDS ORDERED: PROPOFOL 10 MG/ML 20 ML VIAL IV ONE (13:02)
[2024-11-23] MEDS ORDERED: LIDOCAINE 1% INJ 10MG/ML (20 ML MDV) ONE (13:02)
--- NOTE | 2024-11-23 13:10 | P.GSHP ---
History of Present Illness H&P Date: 11/23/24 Chief Complaint: Tonsillar cancer 74-year-old male here for upper endoscopy with PEG tube placement. Patient with recent diagnosed with tonsillar cancer. Patient is going through chemotherapy for that. Has had progressive dysphagia to the point that now he is having difficulty with solids and liquids. No abdominal pain. Has had weight loss. BMI 23. Past Medical History Past Medical History: Asthma, Cancer, Hearing Disorder / Deafness, Sleep Apnea/CPAP/BIPAP Additional Past Medical History / Comment(s): 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 Has CPAP-unable to currently use due to difficulty with correct positioning r/t cancer. History of Any Multi-Drug Resistant Organisms: None Reported Past Surgical History: Back Surgery, Hernia Repair, Orthopedic Surgery Additional Past Surgical History / Comment(s): COLONOSCOPY,back surgery , Surgery for ruptured disc. Past Anesthesia/Blood Transfusion Reactions: No Reported Reaction Additional Past Anesthesia/Blood Transfusion Reaction / Comment(s): NEVER HAS HAD GENERAL ANESTHESIA Smoking Status: Never smoker - Past Family History Mother Family Medical History: Cancer Brother(s) Family Medical History: CVA/TIA Father Family Medical History: COPD Medications and Allergies Home Medications Medication Instructions Recorded Confirmed Type Cetirizine HCl [Zyrtec] 10 mg PO QAM 02/24/19 11/23/24 History Fluticasone Propion/Salmeterol 1 inhalation PO DAILY 02/24/19 11/23/24 History [Wixela 100-50 Inhub] Fluconazole [Diflucan] 100 mg PO QAM 11/22/24 11/23/24 History Hydrocodone/Acetaminophen 5 - 325 mg PO DIRECTED PRN 11/22/24 11/23/24 History [Hydrocodone/Acetaminophen 7.5-325] Lidocaine Viscous [Xylocaine 1 dose PO TID PRN 11/22/24 11/23/24 History Viscous 2%] Pilocarpine [Salagen] 5 mg PO TID PRN 11/22/24 11/23/24 History Allergies Allergy/AdvReac Type Severity Reaction Status Date / Time No Known Allergies Allergy Verified 11/23/24 11:49 Surgical - Exam Vital Signs Temp Pulse Resp BP Pulse Ox 96.9 F L 91 16 153/92 100 05/20/25 11:58 11/23/24 11:58 11/23/24 11:58 11/23/24 11:58 11/23/24 11:58 Physical exam: General: Well-developed, well-nourished HEENT: Normocephalic, sclerae nonicteric, radiation skin changes across the lower neck Abdomen: Nontender, nondistended Extremities: No edema Neuro: Alert and oriented Assessment and Plan (1) Tonsillar cancer Narrative/Plan: Will proceed with upper endoscopy with PEG tube placement at this time. Risks of bleeding, infection, catheter misplacement, bowel injury discussed. He understands and wishes to proceed. Current Visit: Yes Status: Acute Code(s): C09.9 - MALIGNANT NEOPLASM OF TONSIL, UNSPECIFIED SNOMED Code(s): 409957500
--- NOTE | 2024-11-23 13:23 | P.PCN ---
Date of Procedure: 11/23/24 Procedure(s) Performed: PREOPERATIVE DIAGNOSIS: Malnutrition, dysphagia POSTOPERATIVE DIAGNOSIS: Same PROCEDURE: EGD with PEG tube placement SURGEON: Tanika EBL: Minimal ANESTHESIA: Sedation COMPLICATIONS: None OPERATIVE PROCEDURE: The patient was placed in the supine position on the endoscopy table. The patient was sedated per anesthesia that time. The Olympus gastroscope was inserted into the oropharynx and passed under direct visualization to the region of the duodenum. No obstruction was seen. The pylorus was widely patent. The stomach was carefully inspected. The stomach was fully insufflated with air. The abdominal wall was inspected. The light was seen shining through the abdominal wall in the left upper quadrant. This site was chosen for PEG tube placement. The area was prepped in the usual sterile fashion. This area was then localized with lidocaine. No air was evident when aspirating while advancing the localizing needle into the stomach until the stomach was reached. A small vertical incision was made using the scalpel. The Seldinger needle was advanced into the lumen of the stomach the wire was advanced. The wire was grasped with an endoscopic snare. The wire was pulled through the oropharynx. The catheter was then threaded over the guidewire and the guidewire and catheter were pulled anteriorly until the hub of the PEG tube catheter was seated against the anterior wall the stomach. The circular bolster was applied and tightened down. The endoscope was then readvanced into the stomach. There was no evidence of any bleeding and there was appropriate tightness on the bolster. The catheter was cut appropriately. The dual port feeding adapter was applied. DISPOSITION: Stable to recovery room
[2024-11-23] MEDS ORDERED: NALOXONE 0.4 MG/ML 1 ML VIAL IV PRN (14:08)
[2024-11-23] MEDS ORDERED: HYDROmorphone 1 MG/ML 1 ML SYRINGE IVP PRN (14:08)
[2024-11-23] MEDS: LACTATED RINGERS 1,000 ML IV ONE (15:00)
[2024-11-23] MEDS ORDERED: PILOCARPINE 5 MG TAB PO PRN (16:04)
--- NOTE | 2024-11-23 16:34 | P.CONS ---
History of Present Illness - Reason for Consult Consult date: 11/23/24 - Chief Complaint Medical management - History of Present Illness 74-year-old man with a medical history of asthma, tonsillar cancer who presented for elective PEG tube placement. Medicine was consulted for medical management. Patient has a history of tonsillar cancer for which he is on chemotherapy and required PEG tube for enteral nutrition, is postop day 0 from this procedure and is doing well without complaints of pain in the belly. He does however complain of pain in the mouth for which she has viscous lidocaine. His asthma is otherwise controlled with Advair. He denies any nausea, vomiting, chest pain, palpitations. Patient is hemodynamically stable. No lab work or imaging to review. All Systems reviewed and pertinent positives and negatives noted in HPI, all other symptoms are negative Gen: In NAD, non-toxic HEENT: normocephalic, atraumatic, hearing acuity is intant, mucous membranes moist CVS: perfusing all extremities well, no pitting edema, Respiratory: symmetric chest expansion, no accessory muscle use, GI: soft, NTTP, ND, : no suprapubic tenderness, no CVA tenderness MSK/Derm: no rashes, cyanosis Neuro: CN II-XII intact, no motor weakness, Psych: cooperative, euthymic mood, judgment and insight is intact Labs and imaging as above Assessment/plan: Asthma without exacerbation - Continue Advair Tonsillar cancer PEG tube placement, postop day 0 - Resume viscous lidocaine as needed - Resume PPI - Continue TPN until tolerating enteral feeding at goal Patient is full code Past Medical History Past Medical History: Asthma, Cancer, Hearing Disorder / Deafness, Sleep Apnea/CPAP/BIPAP Additional Past Medical History / Comment(s): 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 Has CPAP-unable to currently use due to difficulty with correct positioning r/t cancer. History of Any Multi-Drug Resistant Organisms: None Reported Past Surgical History: Back Surgery, Hernia Repair, Orthopedic Surgery Additional Past Surgical History / Comment(s): COLONOSCOPY,back surgery 05/30/14, Surgery for ruptured disc. Past Anesthesia/Blood Transfusion Reactions: No Reported Reaction Additional Past Anesthesia/Blood Transfusion Reaction / Comm: NEVER HAS HAD GENERAL ANESTHESIA Smoking Status: Never smoker - Past Family History Mother Family Medical History: Cancer Brother(s) Family Medical History: CVA/TIA Father Family Medical History: COPD Medications and Allergies Home Medications Medication Instructions Recorded Confirmed Type Cetirizine HCl [Zyrtec] 10 mg PO QAM 02/24/19 11/23/24 History Fluticasone Propion/Salmeterol 1 inhalation PO DAILY 02/24/19 11/23/24 History [Wixela 100-50 Inhub] Fluconazole [Diflucan] 100 mg PO QAM 11/22/24 11/23/24 History Hydrocodone/Acetaminophen 5 - 325 mg PO DIRECTED PRN 11/22/24 11/23/24 History [Hydrocodone/Acetaminophen 7.5-325] Lidocaine Viscous [Xylocaine 1 dose PO TID PRN 11/22/24 11/23/24 History Viscous 2%] Pilocarpine [Salagen] 5 mg PO TID PRN 11/22/24 11/23/24 History Allergies Allergy/AdvReac Type Severity Reaction Status Date / Time No Known Allergies Allergy Verified 11/23/24 11:49 Physical Exam Osteopathic Statement: *. No significant issues noted on an osteopathic structural exam other than those noted in the History and Physical/Consult. Vitals: Vital Signs Temp Pulse Resp BP Pulse Ox 11/23/24 15:32 99.0 F 80 18 131/87 100 11/23/24 14:30 87 18 149/88 94 L 11/23/24 14:00 87 16 143/86 94 L 11/23/24 13:48 80 16 113/84 99 11/23/24 13:30 75 16 121/76 98 11/23/24 11:58 96.9 F L 91 16 153/92 100 Intake and Output 11/23/24 11/23/24 11/23/24 06:59 14:59 22:59 Intake Total 850 Balance 850 Intake: IV 850 Other: Weight 76.9 kg
[2024-11-23] MEDS: D5-0.45% NACL WITH KCL 20MEQ/L 1,000 ML IV SCH (17:23)
[2024-11-23] MEDS: LIDOCAINE VISCOUS 2% 15 ML CUP PO PRN (19:44)
[2024-11-23] MEDS: HYDROcodone/APAP 5-325MG 1 EACH TAB PO PRN (21:15)
[2024-11-24 07:39] VITALS: RESP 18
[2024-11-24 08:24] LABS: HCT 33.3 % (39.6-50.0); HGB 11.2 g/dL (13.0-17.0); MCH 31.4 pg (27.0-32.0); MCHC 33.6 g/dL (32.0-37.0); MCV 93.3 FL (80.0-97.0); Mean Platelet Volume 9.1 FL (9.5-12.2); NRBC Per 100 WBC 0 X 10*3/uL (0.00-0.01); Platelet Count 163 X 10*3/uL (140-440); RBC 3.57 X 10*6/uL (4.40-5.60); RDW 14.1 % (11.5-14.5); WBC 1.56 X 10*3/uL (4.50-10.00)
[2024-11-24 08:28] VITALS: BMI 23.0
[2024-11-24] MEDS: SYMBICORT 80-4.5 MCG INHALER INHALATION SCH (08:30)
[2024-11-24 08:39] LABS: BUN/Creat Ratio 31.43 Ratio (12.00-20.00); Calcium 8.5 mg/dL (8.7-10.3); Carbon Dioxide 25.9 mmol/L (21.6-31.8); Chloride 102 mmol/L (96-109); Glucose 125 mg/dL (70-110); Magnesium 1.7 mg/dL (1.5-2.4); Potassium 3.7 mmol/L (3.5-5.5); Sodium 137 mmol/L (135-145)
[2024-11-24] MEDS: LORATADINE 10 MG TAB PO SCH (09:50)
[2024-11-24] MEDS: PANTOPRAZOLE 40 MG/10 ML VIAL IV SCH (09:50)
[2024-11-24 12:07] LABS: Basophils # (A) 0.01 X 10*3/uL (0.00-0.10); Basophils % (A) 0.6 %; Eosinophils # (A) 0 X 10*3/uL (0.04-0.35); Eosinophils % (A) 0 %; Lymphocytes # (A) 0.18 X 10*3/uL (0.90-5.00); Lymphocytes % (A) 11.5 %; Monocytes % (A) 32.1 %; Neutrophils # (A) 0.86 X 10*3/uL (1.80-7.70); Neutrophils % (A) 55.2 %; RBC Morphology Normal (Normal)
--- NOTE | 2024-11-24 12:28 | P.DS ---
Providers Expected date of discharge: 11/24/24 Attending physician: Paresh Sagastume Consults: 11/23/24 14:14 Consult Physician Routine Consulting Provider: Shirley Chen Consult Reason/Comments: med mgmt Do you want consulting provider notified?: Yes [facility] [place] [facility] Course: Discharge diagnosis 1. Tonsillar cancer 2. Dysphagia 3. Severe protein calorie malnutrition Hospital course This is a 74-year-old male with history of tonsillar cancer with dysphagia and protein calorie malnutrition. He is status post PEG tube placement. His pain is controlled. He is starting tube feeds today. Vitals are stable. He is stable for discharge. PEG tube site clean dry and intact. Please refer to chart for any further details. Physician Sports Betting Manager note has been reviewed by physician. Signing provider agrees with the documented findings, assessment, and plan of care. Patient Condition at Discharge: Stable Plan - Discharge Summary Discharge Rx Participant: No New Discharge Prescriptions: Continue Fluticasone Propion/Salmeterol [Wixela 100-50 Inhub] 1 inhalation PO DAILY Cetirizine HCl [Zyrtec] 10 mg PO QAM Fluconazole [Diflucan] 100 mg PO QAM Lidocaine Viscous [Xylocaine Viscous 2%] 1 dose PO TID PRN PRN Reason: oral pain/swish/spit Hydrocodone/Acetaminophen [Hydrocodone/Acetaminophen 7.5-325] 5 - 325 mg PO DIRECTED PRN PRN Reason: Pain Pilocarpine [Salagen] 5 mg PO TID PRN PRN Reason: Dry Mouth Discharge Medication List Cetirizine HCl [Zyrtec] 10 mg PO QAM 02/24/19 [History] Fluticasone Propion/Salmeterol [Wixela 100-50 Inhub] 1 inhalation PO DAILY 02/24/19 [History] Fluconazole [Diflucan] 100 mg PO QAM 11/22/24 [History] Hydrocodone/Acetaminophen [Hydrocodone/Acetaminophen 7.5-325] 5 - 325 mg PO DIRECTED PRN 11/22/24 [History] Lidocaine Viscous [Xylocaine Viscous 2%] 1 dose PO TID PRN 11/22/24 [History] Pilocarpine [Salagen] 5 mg PO TID PRN 11/22/24 [History] Follow up Appointment(s)/Referral(s): [facility], [NON-STAFF] - 1-2 Days ([facility] will call you to schedule your in home nursing visits to begin teaching on tube feeding administration. Please call them if you have any questions. ) [facility], [REFERRING] - 1-2 Days ([facility] will deliver the tube feeding formula and supplies to your home after discharge. Please call them if you have questions. ) Paresh Sagastume MD [Medical Doctor] - 1 Week Discharge Disposition: HOME WITH HOME HEALTH SERVICES
[2024-11-24 12:33] LABS: ALT 31 U/L (4-49); AST 24 U/L (17-59); African American GFR (CKD) >90 (>60 ml/min/1.73 sqM); Albumin 3.1 g/dL (3.5-5.0); Albumin/Globulin Ratio 1.4; Alkaline Phosphatase 37 U/L (38-126); Anion Gap 9 mmol/L; Blood Urea Nitrogen 20 mg/dL (9-20); Calcium 8.8 mg/dL (8.4-10.2); Carbon Dioxide 26 mmol/L (22-30); Chloride 99 mmol/L (98-107); Globulin 2.2 g/dL; Glucose 131 mg/dL (74-99); Magnesium 1.6 mg/dL (1.6-2.3); Non-African American GFR(CKD) >90 (>60 ml/min/1.73 sqM); Phosphorus 2.5 mg/dL (2.5-4.5); Potassium 3.8 mmol/L (3.5-5.1); Sodium 134 mmol/L (137-145); Total Bilirubin 0.8 mg/dL (0.2-1.3); Total Protein 5.3 g/dL (6.3-8.2)
[2024-11-24 12:37] VITALS: BP 123/72; PULSE 65; TEMP 99.1
--- NOTE | 2024-11-24 14:41 | P.PN ---
Subjective Progress Note Date: 11/24/24 Subjective: Patient seen and examined at bedside. No acute events overnight. Pertinent positives and negatives as discussed above, a complete review of systems was performed and all other systems are negative. Vitals Signs Reviewed. General: Nontoxic, no distress, appears at stated age Derm: Warm, dry, PEG tube site clean, dry, intact Head: Atraumatic, normocephalic, symmetric Eyes: EOMI, no lid lag, anicteric sclera Mouth: No lip lesion, mucus membranes moist Cardiovascular: S1S2 reg, no murmur Lungs: CTA bilateral, no rhonchi, no rales, no accessory muscle use Abdominal: Soft, nontender to palpation, no guarding, no appreciable organomegaly Ext: No gross muscle atrophy, no edema, no contractures Neuro: CN II-XI grossly intact, no focal neuro deficits Psych: Alert, oriented, appropriate affect Data Reviewed Today: Pertinent Labs: WBC 1.56, hemoglobin 11.2, platelet 163, sodium 134, creatinine 0.7, glucose 131 Imaging: No new imaging Assessment and Plan: Asthma without exacerbation - Continue Advair Tonsillar cancer Status post PEG tube placement Bicytopenia - Surgery note reviewed, patient okay to be discharged - Likely secondary to above Patient is medically optimized for discharge Thank you for allowing us to participate in the care of this pleasant patient. Do not hesitate to contact us with questions. Someone can be reached from the [facility] hospitalist group all hours of the day at [phone] or via [email or web address]. Objective - Vital Signs Vital signs: Vital Signs Temp 99.1 F 11/24/24 12:07 Pulse 65 11/24/24 12:07 Resp 18 11/24/24 12:07 BP 123/72 11/24/24 12:07 Pulse Ox 99 11/24/24 12:07 FiO2 Intake & Output 11/23/24 11/24/24 11/24/24 18:59 06:59 18:59 Intake Total 850 1200 Balance 850 1200 Weight 76.9 kg 76.9 kg Intake: IV 850 Oral 1200 Other: Voiding Method Toilet # Voids 0 2 - Labs CBC & Chem 7: 11/24/24 05:32 11/24/24 12:04 Labs: Abnormal Lab Results - Last 24 Hours (Table) 05/21/25 05/21/25 05/21/25 Range/Units 05:32 05:32 12:04 WBC 1.56 L (4.50-10.00) X 10*3/uL RBC 3.57 L (4.40-5.60) X 10*6/uL Hgb 11.2 L (13.0-17.0) g/dL Hct 33.3 L (39.6-50.0) % MPV 9.1 L (9.5-12.2) FL Neutrophils # 0.86 L (1.80-7.70) X 10*3/uL Lymphocytes # 0.18 L (0.90-5.00) X 10*3/uL Eosinophils # 0 L (0.04-0.35) X 10*3/uL Sodium 134 L (137-145) mmol/L BUN/Creatinine Ratio 31.43 H (12.00-20.00) Ratio Glucose 125 H 131 H (70-110) mg/dL Calcium 8.5 L (8.7-10.3) mg/dL Alkaline Phosphatase 37 L (38-126) U/L Total Protein 5.3 L (6.3-8.2) g/dL Albumin 3.1 L (3.5-5.0) g/dL
== END 2024-11-24 15:43 | disposition home health service (06) ==
LOC: ORWHC2ENDO 10:17 → 5NMEDONC 13:22 → ORWHC2ENDO 11-24 15:43
PROVIDERS: ATTEND Surgery
DX: E43 Unspecified severe protein-calorie malnutrition (principal); C09.9 Malignant neoplasm of tonsil, unspecified; J45.909 Unspecified asthma, uncomplicated; G47.33 Obstructive sleep apnea (adult) (pediatric); Z85.818 Personal history of malignant neoplasm of other sites of lip, oral cavity, and pharynx; Z46.59 Encounter for fitting and adjustment of other gastrointestinal appliance and device; Z98.890 Other specified postprocedural states; Z93.1 Gastrostomy status; Z82.3 Family history of stroke; Z79.51 Long term (current) use of inhaled steroids; Z79.899 Other long term (current) drug therapy
CPT/HCPCS: 94640; 80053; 83735; 84100; 85025; 43246; J2003; J2704; J2470; B4087; 80048